=== PATIENT | female | born 1970 | race Caucasian/White ===

== ENCOUNTER 2019-10-18 17:03 | Inpatient (IN) | payer OTHER ==
[~2019-10-18] VITALS: Ht 170.1 cm; Wt 90.0 kg
[2019-10-18 17:20] VITALS: BP 138/86
--- NOTE | 2019-10-18 17:51 | NUR ---
ATIVAN ON HOLD UNTIL PT. VOIDS FOR URINE SAMPLE. IN NO DISTRESS. WILL CONT TO MONITOR. CALL LIGHT IN REACH.
[2019-10-18 18:02] LABS: BASO # 0.1 10*3/uL (0.0-0.1); BASO % 0.8 % (0.0-1.0); EOS # 0.1 10*3/uL (0.0-0.4); EOS % 1.4 % (1.0-4.0); HEMATOCRIT 37.9 % (37.0-47.0); LYMPH # 1.4 10*3/uL (1.3-4.4); LYMPH % 18.7 % (27.0-41.0); MEAN CELL VOLUME 76.6 fl (81.0-99.0); MEAN CORPUSCULAR HGB 24.6 pg (27.0-31.0); MEAN CORPUSCULAR HGB CONC 32.2 g/dl (33.0-37.0); MEAN PLATELET VOLUME 8.7 fl (9.6-12.3); MONO # 0.5 10*3/uL (0.1-1.0); MONO % 6.8 % (3.0-9.0); NEUT # 5.5 10*3/uL (2.3-7.9); NEUT % 71.9 % (47.0-73.0); PLATELET COUNT AUTOMATED 254 10*3/uL (130-400); RED BLOOD COUNT 4.95 10*6/uL (4.10-5.10); WHITE BLOOD COUNT 7.6 10*3/uL (4.8-10.8)
[2019-10-18 18:13] LABS: ACT PARTIAL THROMBO TIME 33.6 SECONDS (20.0-32.1)
[2019-10-18 18:27] LABS: ALBUMIN 3.3 gm/dl (3.1-4.5); ALKALINE PHOSPHATASE 77 U/L (45-117); BUN 5 mg/dl (7-24); CHLORIDE 110 mmol/L (98-107); CREATININE 0.74 mg/dL (0.55-1.02); POTASSIUM 3.2 mmol/L (3.5-5.1); SGOT/AST 15 IU/L (3-35); SGPT/ALT 28 U/L (12-78); SODIUM 139 mmol/L (136-145); TOTAL PROTEIN 7.2 gm/dL (6.4-8.2)
[2019-10-18 18:33] LABS: BETA-HCG, QUANT < 1.0 mIU/mL (1-3)
[2019-10-18 18:38] LABS: URINE AMPHETAMINES < 1000 (1000ng/ml); URINE BARBITURATES < 200 (200ng/ml); URINE BENZODIAZEPINES < 200 (200ng/ml); URINE CANNABINOIDS (THC) < 50 (50ng/ml); URINE COCAINE < 300 (300ng/ml); URINE METHADONE < 300 (300ng/ml); URINE OPIATES < 300 (300ng/ml)
[2019-10-18 18:39] LABS: URINE PHENCYCLIDINE < 25 (25ng/ml)
[2019-10-18 18:48] LABS: BILIRUBIN NEGATIVE (NEGATIVE); BLOOD NEGATIVE (NEGATIVE); CLARITY CLEAR (CLEAR); COLOR STRAW (YELLOW); GLUCOSE NEGATIVE (NEGATIVE); KETONE NEGATIVE (NEGATIVE); LEUKO ESTERASE NEGATIVE (NEGATIVE); NITRITE NEGATIVE (NEGATIVE); SPECIFIC GRAVITY 1.005 (1.005-1.030); UROBILINOGEN 0.2 E.U./dl (0.2-1.0)
[2019-10-18 18:49] LABS: BACTERIA TRACE; RBC 0-2 rbc/hpf (0-2); WBC 0-2 wbc/hpf (0-5)
--- NOTE | 2019-10-18 19:45 | NUR ---
REPORT OVER THE PHONE FROM MANAGER MARKETINGJATIN HARDY AT THIS TIME
--- NOTE | 2019-10-18 19:58 | NUR ---
A 49, admitted to 5E, under the services of ANNIKA sU DO with a diagnosis of OPIATE WITHDRAWAL. Chief complaint is OPIATE WITHDRAWAL. Patient arrived via stretcher from ER. Monitor applied. Initial assessment completed. Vital signs taken and recorded. ANNIKA US DO notified of admission to the unit. Orders received. See assessment for past medical history, medications and allergies. Patient and/or family oriented to unit. visitation policy reviewed. Clothing/patient valuable form completed. MAIKEL ELENA
[2019-10-18 20:00] VITALS: BP 103/71
--- NOTE | 2019-10-18 20:04 | NUR ---
PATIENT THRASHING AROUND IN BED. KICKING LEGS AND SWINGING ARMS. MEDICATED WITH PRN BENEDRYL. WILL MONITOR. BED ALARM ON
--- NOTE | 2019-10-18 20:05 | NUR ---
MEDICATED WITH PRN REQUIP FOR RESTLESS LEGS. WILL MONITOR
[2019-10-18] MEDS ORDERED: EFFEXOR XR150 M1 PO (20:11)
--- NOTE | 2019-10-18 20:12 | NUR ---
MED REC COMPLETED WITH PATIENT ALERT AND ORIENTED
--- NOTE | 2019-10-18 20:17 | NUR ---
PATIENT REMINDED NOT TO LEAVE THIS FLOOR. VERBALIZED UNDERSTANDING
--- NOTE | 2019-10-18 20:54 | NUR ---
DR VIZCARRA AWARE OF CIWA AND COWS SCALE. STATES HE WILL ORDER ANOTHER 2 MG OF ATIVAN NOW
--- NOTE | 2019-10-18 21:00 | NUR ---
PATIENT REPEATEDLY SETTING BED ALARM OFF DUE TO THRASHING AROUND IN BED. REFUSES TO STAY IN BED FOR SAFETY. KEEPS GETTING UP TO STAND AND USE RESTROOM. MOVED PATIENT CLOSER TO NURSES STATION FOR CLOSER MONITORING
--- NOTE | 2019-10-18 21:00 | NUR ---
REQUIP AND BENEDRYL NOT EFFECTIVE. PATIENT CONTINUES TO THRASH AROUND AND C/O RESTLESS LEGS
--- NOTE | 2019-10-18 21:03 | NUR ---
MEDICATED WITH PRN ROBAXIN FOR MUSCLE ACHES AND ATIVAN FOR ANXIOUSNESS. WILL MONITOR
--- NOTE | 2019-10-18 21:36 | NUR ---
PATIENT SET BED ALARM OFF. FDC TO RESTROOM, CARRYING BLANKETS WITH EYES CLOSED. STATES SHE HAS TO PEE BUT NOT SURE WHY SHE HAS HER BLANKETS. VERY UNSTEADY ON HER FEET. REMINDED TO USE CALL LIGHT FOR ASSISTANCE TO PREVENT FALLS. VERBALIZED UNDERSTANDING. PATIENT SAT ON TOILER FOR SEVERAL MINUTES WHILE SWAYING BACK AND FORTH WITH EYES CLOSED. PATIENT DID NOT PEE. ASSISTED BACK TO BED. BED ALARM ON, BED IN LOW POSITION, CALL LIGHT IN REACH
--- NOTE | 2019-10-18 21:47 | NUR ---
PATIENT DROWSY, BUT CONTINUES TO THRASH LEGS AROUND IN BED. ARROUSES EASILY AND ALERT AND ORIENTED. SHE STATES "I AM JUST GETTING SLEEPY". ATIVAN SEEMS EFFECTIVE. ROBAXIN NOT EFFECTIVE AT THIS TIME
[2019-10-19] VITALS: BP 137/68
--- NOTE | 2019-10-19 00:45 | NUR ---
PATIENT RESTING IN BED WITH EYES CLOSED. TREMORS AND RESTLESS LEGS STILL SEEN. LEGS THRASHING AROUND BED. RESPS EASY AND REGULAR. BED IN LOWEST POSITION, CALL LIGHT IN REACH
--- NOTE | 2019-10-19 03:59 | NUR ---
MEDICATED WITH PRN ROBAXIN FOR MUSCLE ACHES. WILL MONITOR
--- NOTE | 2019-10-19 04:59 | NUR ---
MEDICATION SOMEWHAT EFFECTIVE PER PATIENT
--- NOTE | 2019-10-19 07:28 | NUR ---
Shift chart check completed.
[2019-10-19 07:58] LABS: BUN 8 mg/dl (7-24); CHLORIDE 110 mmol/L (98-107); CREATININE 0.71 mg/dL (0.55-1.02); SODIUM 136 mmol/L (136-145)
--- NOTE | 2019-10-19 11:08 | NUR ---
PATIENT MEETS [facility]. PATIENT IS WANTING TO FOLLOW UP WITH [facility] IN [facility] FOR HER AFTERCARE PLAN. EMILY HAGER B.A. ULTRASOUND SONOGRAPHER
--- NOTE | 2019-10-19 11:41 | NUR ---
pt sleeping, no distress noted.
[2019-10-19 12:00] VITALS: BP 139/62
--- NOTE | 2019-10-19 14:00 | NUR ---
PT SLEPING, NO DISTERSS NOTED
[2019-10-19 16:00] VITALS: BP 129/88
--- NOTE | 2019-10-19 16:16 | NUR ---
IV LEFT FOREARM LEAKING, IV D/C. PT AT THIS TIME DID NOT WANT ANOTHER IV STARTED. IF PATIENT FEELS LIKE WITHDRAWL IS WORSENING, SHE WILL NOTIFY STAFF FOR NEED OF IV/POSSIBLE IV ATIVAN. PT REQUESTED AT THIS TIME ROBAXIN AND MOTRIN FOR MUSCLE ACHES. WILL MONITOR FOR EFFECTIVENESS
--- NOTE | 2019-10-19 17:10 | NUR ---
PRN MEDICATIONS EFFECTIVE. PT STATES NO NEEDS AT THIS TIME
--- NOTE | 2019-10-19 19:51 | NUR ---
PATIENT RESTING IN BED WITH EYES CLOSED. ARROUSES EASILY. ALERT AND ORIENTED TO PERSON PLACE AND TIME. COOPERATIVE. DENIES ANY NEEDS AT THIS TIME. NO COMPLAINTS. REMINDED TO NOT LEAVE THE FLOOR. VERBALIZED UNDERSTANDING. BED IN LOWEST POSITION, CALL LIGHT IN REACH
[2019-10-19 20:00] VITALS: BP 96/56
--- NOTE | 2019-10-19 22:20 | NUR ---
MEDICATED WITH PRN REQUIP FOR C/O RESTLESS LEGS. WILL MONITOR
--- NOTE | 2019-10-19 23:20 | NUR ---
REQUIP EFFECTIVE PER PATIENT
[2019-10-20] VITALS: BP 108/54
--- NOTE | 2019-10-20 01:28 | NUR ---
PATIENT RESTING IN BED WITH NO S/S OF DISTRESS. BED IN LOWEST POSITION, CALL LIGHT IN REACH, BED ALARM ON
[2019-10-20 07:53] LABS: BUN 15 mg/dl (7-24); CHLORIDE 108 mmol/L (98-107); CREATININE 0.94 mg/dL (0.55-1.02); POTASSIUM 3.6 mmol/L (3.5-5.1); SODIUM 139 mmol/L (136-145)
[2019-10-20 08:00] VITALS: BP 117/55
--- NOTE | 2019-10-20 08:39 | NUR ---
PT REQUESTED AND GIVEN VISTARIL FOR ANXIETY AND ROBAXIN FOR MUSCLE ACHES WILL MONITOR
--- NOTE | 2019-10-20 09:14 | NUR ---
PT STATES THAT ROBAXIN AND VISTARIL HELPED WILL MONITOR
[2019-10-20 12:00] VITALS: BP 114/60
--- NOTE | 2019-10-20 15:02 | NUR ---
PATIENT WAS NAPPING THIS AFERNOON. NO COMPLAINS OR ISSUE A THIS TIME.
[2019-10-20 16:00] VITALS: BP 125/74
--- NOTE | 2019-10-20 16:48 | NUR ---
[facility] STAFF IN TO SEE PATIENT. PATIENT'S AFTERCARE REMAINS THE SAME. EMILY HAGER B.A. FAMILY INTERVENTION SPECIALIST
--- NOTE | 2019-10-20 19:52 | NUR ---
ROBAXIN GIVEN PER ORDER FOR MUSCLE ACHES. SEE MAR.
[2019-10-20 20:00] VITALS: BP 113/73
--- NOTE | 2019-10-20 20:50 | NUR ---
ROBAXIN EFFECTIVE PER PT. FOR MUSCLE ACHES.
[2019-10-21] VITALS: BP 115/62
--- NOTE | 2019-10-21 04:18 | NUR ---
24 HR chart check completed.
--- NOTE | 2019-10-21 07:45 | NUR ---
RESTING IN BED. DENIES ANY COMPLAINTS. VITALS STABLE. SPEAKS OF GOING TO OUTPATIENT THERAPY IN [facility] WHEN DISCHARGED TO HOME.
[2019-10-21 08:00] VITALS: BP 120/60
[2019-10-21] MEDS ORDERED: ATARAX,VISTARIL50 MG PO (11:14)
[2019-10-21] MEDS ORDERED: ZOFRAN 4 MG ED2 TAB PO (11:14)
[2019-10-21 12:00] VITALS: BP 115/62
--- NOTE | 2019-10-21 13:09 | NUR ---
[facility] STAFF IN TO SEE PATIENT. [facility] STAFF PROVIDED PATIENT WITH HER APPOINTMENT DATE AND TIME WITH [facility]. PATIENT AGREES AND UNDERSTANDS HER AFTERCARE PLAN. EMILY HAGER B.A. MECHANIC MARINE ENGINE
--- NOTE | 2019-10-21 15:15 | NUR ---
Discharge instructions reviewed with patient/family. Patient receptive and verbalizes understanding. Follow-up care arranged. Written instructions given to patient/family. PATRICIA LIRIANO
== END 2019-10-21 15:48 | disposition home or self-care (01) | DRG 773 ==
LOC: ED 17:03 → 5E 17:52 → EDHOLD 17:52 → 5E 17:52
PROVIDERS: Emergency Medicine; Internal Medicine; Social Worker Clinical; ADMIT Student in an Organized Health Care Education/Training Program
DX: F11.23 Opioid dependence with withdrawal (principal); E87.6 Hypokalemia; F17.210 Nicotine dependence, cigarettes, uncomplicated; F19.10 Other psychoactive substance abuse, uncomplicated; F32.9 Major depressive disorder, single episode, unspecified; R79.82 Elevated C-reactive protein (CRP); M06.9 Rheumatoid arthritis, unspecified; R65.10 Systemic inflammatory response syndrome (SIRS) of non-infectious origin without acute organ dysfunction; F10.230 Alcohol dependence with withdrawal, uncomplicated; Z82.49 Family history of ischemic heart disease and other diseases of the circulatory system; Z71.6 Tobacco abuse counseling; Z79.899 Other long term (current) drug therapy